=== PATIENT | female | born 1970 | race Caucasian/White ===

== ENCOUNTER 2019-09-10 20:10 | Emergency (ER) | payer OTHER, SELFPAY ==
[2019-09-10 20:33] VITALS: BP 163/119; PULSE 93; RESP 16; TEMP 37; O2SAT 99; BMI 29.0
--- NOTE | 2019-09-10 21:28 | ED_ITS ---
Entered by Anyi De Anda, acting as scribe for Jose J Lo MD Sep 10, 2019 20:10 HPI - Animal Bite General: Chief Complaint: Animal Bite Stated Complaint: animal bite, right elbow Time Seen by Provider: 09/10/19 21:28 Source: patient Mode of arrival: ambulatory History of Present Illness: HPI narrative: 49 y/o female presents to the ED with an animal bite ( around 1700). 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 She was bitten on the right arm/elbow. The family told her the dog was UTD on its vaccinations but she did not get any paperwork to prove it. She washed the site immediately and states she only has mild discomfort. She was advised to come here for medical clearance, by her boss. complaint: animal bite Onset (ago): hour(s) Animal: dog Description of animal: household pet Mechanism: bite Location - Extremities: Right: arm Context: unprovoked Associated symptoms: Deny chills, fever(s) or headache(s) Treatments prior to arrival: wound dressing(s) and irrigation Review of Systems Const: Denies: fever, chills, body aches or change in appetite Eyes: Denies: blurry vision or eye discomfort ENMT: Denies: throat pain or dental pain Card: Denies: chest pain Resp: Denies: shortness of breath GI: Denies: abdominal pain, nausea, vomiting or diarrhea : Denies: painful urination Musc: Denies: neck pain or back pain Skin/Breast: Reports: skin tenderness Neuro: Denies: headache Psych: Denies: depression Alden/Lymph: Denies: easy bruising All/Imm: Denies: hives PFS ED PFSH: Social History Smoking and tobacco status: never smoked Physical Exam Const: COMMON NORMALS: no apparent distress, oriented x3 and healthy appearing HENMT: COMMON NORMALS: normocephalic and head/scalp atraumatic HEAD & SCALP: normocephalic and atraumatic Eye: COMMON NORMALS: PERRL and EOMs intact bilaterally PUPIL: Yes PERRL Neck/C-Spine: COMMON NORMALS: full ROM and supple Chest: COMMONS NORMALS: inspection of chest normal and palpation of chest normal Resp: COMMON NORMALS: normal respiratory effort, no retractions, no use of accessory muscles and clear to auscultation bilaterally AUSCULTATION: clear to auscultation bilaterally Cardio: COMMON NORMALS: regular rate, regular rhythm and no murmurs RATE: regular rate RHYTHM: regular rhythm GI: COMMON NORMALS: normal to inspection, nondistended, normoactive bowel sounds, soft to palpation, non-tender and no masses PALPATION: Yes soft Extremity: COMMON NORMALS: normal to inspection and full ROM Neuro: COMMON NORMALS: oriented x3, moves all extremities and no focal motor deficits Psych: COMMON NORMALS: mental status grossly normal, thought process normal and cooperative THOUGHT PROCESS: normal thought process Skin: COMMON NORMALS: no wounds (bite to right arm) Course Vital Signs: Vital signs: Vital Signs Temperature 98.6 F 09/10/19 20:33 Pulse Rate 93 09/10/19 20:33 Respiratory Rate 16 09/10/19 20:33 Blood Pressure 163/119 09/10/19 20:33 Pulse Oximetry 99 09/10/19 20:33 MDM - Animal Bite MDM Narrative: Medical decision making narrative: Patient presents here with a dog bite. She has no puncture wounds but does have abrasions to her right elbow. She has no signs of major injuries. We will update her tetanus and place her on Keflex for prophylaxis. She is to contact animal control to have the dog evaluated for possible rabies. Patient states that the dog's bowl sander states that he is up-to-date on his vaccines. Discharge Plan Discharge Patient Disposition: Home, Self-Care Clinical Impression: Dog bite Qualifiers: Encounter type: initial encounter Qualified Code(s): W54.0XXA - Bitten by dog, initial encounter Condition: Stable Prescriptions: New Keflex 500 mg capsule 500 mg PO Q6H 7 Days Qty: 28 RF: 0 Discharge Orders: Discharge Order (Routine); Ordered 09/10/19 Ordered By: Jose J Lo Discharge Diet: Advance as tolerated Discharge Activity: Resume usual activity Patient Instructions: Animal Bite (ED) Coding Level of Care Code ED Forensic Science Examiner for Chg Fwd Exam Comprehensive The documentation recorded by the Adilson dietrich Ashley, accurately reflects the service I personally performed and the decisions made by Wally mae Korby, MD Sep 10, 2019 20:10
[2019-09-10] MEDS: tetanus-dipt-pertussis 0.5 mL SDV IM (22:01)
[2019-09-10 22:34] VITALS: BP 134/84; PULSE 70; RESP 16; TEMP 36.5; O2SAT 96
== END 2019-09-10 22:05 | disposition home or self-care (01) ==
PROVIDERS: Emergency Provider Emergency Medicine
DX: S50.311A Abrasion of right elbow, initial encounter (principal); W54.0XXA Bitten by dog, initial encounter
CPT/HCPCS: 12345; 90471; 90715; 99281; 99282

== ENCOUNTER → 2019-10-10 15:32 | Outpatient (BNVA) | payer OTHER, SELFPAY | PROVIDERS: Visit Provider Nurse Practitioner Family | DX: R05 Cough (principal); J01.40 Acute pansinusitis, unspecified; Z20.828 Contact with and (suspected) exposure to other viral communicable diseases | CPT/HCPCS: 87635 ==

== ENCOUNTER 2019-11-24 08:13 | Outpatient (CLI) | payer OTHER, SELFPAY ==
--- NOTE | 2019-11-24 08:22 | XR_ITS ---
WS: [id number] CHEST 2 VIEWS HISTORY: COUGHING COMPARISON: 04/01/2006 Lungs: Clear with no abnormality. No pleural effusion or pneumothorax. Cardiac size: Normal. Mediastinum/Aorta: Normal mediastinum. Bones: Normal. XR/XR chest 2V* [id number] IMPRESSION: Normal chest.
== END 2019-11-24 08:14 | disposition home or self-care (01) ==
LOC: RAD 08:17
PROVIDERS: PCP Family Medicine; Visit Provider Specialist
DX: R05 Cough (principal)
CPT/HCPCS: 71046

== ENCOUNTER 2020-06-23 03:59 | Emergency (ER) | payer OTHER, SELFPAY ==
[2020-06-23 04:02] VITALS: BP 218/128; PULSE 120; RESP 18; TEMP 36.8; O2SAT 96; BMI 30.2
--- NOTE | 2020-06-23 04:06 | ECG_ITS ---
[facility] Test Date: 2020-06-23 Pat Name: Veronica Kim Department: Room: Gender: Female Customer Resolution Specialist: : 1970 Requested By: Jose J Lo Order Number: [id number] Aubrie MD: Juan Huertas M.D. Measurements Intervals [place] Rate: 110 P: 40 [place]: 197 QRS: -11 QRSD: 89 T: 23 QT: 317 QTc: 430 Interpretive Statements SINUS TACHYCARDIA No previous ECG available for comparison Electronically Signed On 06-24-2020 18:00:09 VENEER REPAIRER MACHINE by Juan Huertas M.D. [id number] f
--- NOTE | 2020-06-23 04:07 | W.ED.EPISTAX ---
HPI - Epistaxis General: Chief complaint: General Medical Stated complaint: high blood pressure, nose bleed Time Seen by Provider: 06/23/20 04:02 Source: patient Mode of arrival: ambulatory Limitations: no limitations History of Present Illness: HPI Narrative: 50-year-old female states she woke up this morning 1130 and had a nosebleed. States she is able to get it stopped but does start again at 3:00. Patient states she placed a tampon in her nose which I removed and the bleeding is stopped again. She states she has a history of high blood pressure but has not been taking her blood pressure medicine for the last week. She checks her blood pressure at home and it was elevated and is elevated. 218/128. She denies any pain anywhere. She states she does feel anxious about this. She denies any worsening or improving factors. Associated symptoms: Deny fever(s), headache(s) or vomiting Review of Systems Const: Denies: fever(s), chills, body aches or change in appetite Eyes: Denies: blurry vision or eye discomfort ENMT: Reports: epistaxis Card: Denies: chest pain Resp: Denies: dyspnea GI: Denies: abdominal pain, nausea, vomiting or diarrhea : Denies: dysuria Musc: Denies: neck pain or back pain Skin/Breast: Denies: rash Neuro: Denies: headache(s) Psych: Denies: depression Alden/Lymph: Denies: easy bruising All/Imm: Denies: urticaria PFSH ED PFSH: Social History Smoking and tobacco status: never smoked Physical Exam Const: COMMON NORMALS: no acute distress, patient oriented x3 and healthy appearing HENMT: COMMON NORMALS: normocephalic and atraumatic HEAD & SCALP: normocephalic and atraumatic OTHER: dried blood to right nare Eye: COMMON NORMALS: Equal, round and reactive pupils present and EOMs intact bilaterally PUPIL: Yes Equal, round and reactive pupils present Neck/C-Spine: COMMON NORMALS: full ROM and supple Chest: COMMONS NORMALS: normal inspection of the chest and normal palpation of entire chest wall Resp: COMMON NORMALS: normal respiratory effort, No retractions, No use of accessory muscles and clear to auscultation bilaterally AUSCULTATION: clear to auscultation bilaterally Cardio: COMMON NORMALS: regular rhythm and No murmurs present (Cardio) RATE: tachycardic RHYTHM: regular rhythm GI: COMMON NORMALS: Normal to inspection, nondistended, normoactive bowel sounds present, Soft to palpation, non-tender and no masses PALPATION: Yes Soft to palpation Extremity: COMMON NORMALS: normal to inspection and full ROM Neuro: COMMON NORMALS: patient oriented x3, moves all extremities and no focal motor deficits Psych: COMMON NORMALS: mental status grossly normal, Normal thought process present and cooperative THOUGHT PROCESS: Normal thought process present Skin: COMMON NORMALS: no rashes or lesions noted and no wounds GENERAL SKIN EXAM: no rashes or lesions noted Course Vital Signs: Vital signs: Vital Signs Temperature 98.2 F 06/23/20 04:02 Pulse Rate 120 H 06/23/20 04:02 Respiratory Rate 18 06/23/20 04:02 Blood Pressure 218/128 06/23/20 04:02 Pulse Oximetry 96 06/23/20 04:02 MDM - Epistaxis MDM Narrative: Medical decision making narrative: Patient presents here with a nosebleed likely from her hypertension. Hypertension is likely due to not taking her meds over the last few days. Her blood pressure is much improved here and she had no longer had nosebleed. She is take her medicine daily. EKG is normal. She is stable for discharge and is to follow-up with her PCP in 3 to 5 days and return if worsening. She understands and agrees to plan. EKG Data^: EKG 1: Attestation: I personally reviewed and interpreted this EKG as follows: EKG interpretation date: 06/23/20 EKG interpretation time: 04:11 Interpretation: sinus tach hr 110 qrs 89 qtc 382 Discharge Plan Discharge Patient Disposition: Home Clinical Impression: Epistaxis, Hypertension Condition: Stable Prescriptions: No Action Trulicity 1.5 mg/0.5 mL pen injector SUBCUT .weekly RF: 0 montelukast [Singulair] 10 mg tablet 10 mg PO DAILY RF: 0 rosuvastatin [Crestor] 20 mg tablet 20 mg PO DAILY RF: 0 fexofenadine [Queta Allergy] 180 mg tablet 180 mg PO DAILY RF: 0 ipratropium-albuterol 0.5 mg-3 mg(2.5 mg base)/3 mL solution for nebulization 3 ml INHALATION QID PRNRF: 0 Discharge Orders: Discharge ED (Routine); Ordered 06/23/20 Ordered By: Jose J Lo Referrals: Izzy Nam DO [Primary Care Provider] - 1-3 days Discharge Diet: Advance as tolerated Discharge Activity: Resume usual activity Patient Instructions: Epistaxis (ED) Coding Level of Care Code ED Interactive Media Marketing Director for Chg Fwd Exam Comprehensive
[2020-06-23 04:10] VITALS: BP 214/108
[2020-06-23] MEDS: labetalol 5 mg/mL SDV 20mL 20 MG IVP (04:15)
[2020-06-23 04:40] VITALS: BP 199/102
[2020-06-23 04:50] VITALS: BP 119/94; PULSE 96; RESP 15; O2SAT 97
[2020-06-23] MEDS: oxymetazoline 0.05% Nasal Spray 15 mL 2 SPRAY NOSTRIL-R (05:28)
[2020-06-23 05:37] VITALS: BP 111/82; PULSE 72; RESP 18; O2SAT 95
--- NOTE | 2020-06-23 05:40 | PC.NURSE ---
after dc, while pt was using the restroom, pt begn to bleed out of R nare. Pt returned to ED rm 7. After re-evaluation from , new orders obtained
[2020-06-23 06:09] VITALS: BP 149/98; PULSE 86; RESP 20; O2SAT 92
--- NOTE | 2020-06-23 06:11 | PC.NURSE ---
i agree with the assessment
== END 2020-06-23 06:11 | disposition home or self-care (01) ==
PROVIDERS: Emergency Provider Emergency Medicine; PCP Family Medicine
DX: R04.0 Epistaxis (principal); I10 Essential (primary) hypertension
CPT/HCPCS: 12345; 30905; 36415; 62270; 93005; 96374; 99282; 99283; J3490

== ENCOUNTER 2020-06-23 16:17 | Emergency (ER) | payer OTHER, SELFPAY ==
[2020-06-23 16:21] VITALS: BP 146/105; PULSE 114; RESP 18; TEMP 36.7; O2SAT 97; BMI 30.2
[2020-06-23 16:25] VITALS: BP 145/90; PULSE 115; RESP 20; O2SAT 97
[2020-06-23 17:04] VITALS: BP 145/90; PULSE 116; RESP 20; O2SAT 97
--- NOTE | 2020-06-23 17:08 | W.ED.GENADLT ---
HPI - General Adult General: Chief complaint: General Medical Stated complaint: COMPLICATIONS WITH THE DRAIN IN NOSE Time Seen by Provider: 06/23/20 16:53 History of Present Illness: HPI narrative: The patient is a 50-year-old female with frequent nosebleeds who came to the ER at 4 AM this morning and had a Rhino Rocket inserted in her right nostril. She says she has seasonal allergies which are severe and she gets frequent nosebleeds related to that. Also she has a history of hypertension and takes her meds daily. Her systolic was over 200 whenever she arrived early this morning however now it is much lower at 146/105. She says the Rhino Rocket is too uncomfortable to keep in her nose and wants it out immediately. Discussed with her that it should be kept in for 2 days to stop the bleeding before being taken out however she would like it out now as she is having pressure in her sinuses and forehead relating to the Rhino Rocket. Associated symptoms: Deny chest pain, confusion, dyspnea, headache(s), rash or palpitations Review of Systems General: Reports: 10 or more systems reviewed and unremarkable except in HPI and below Const: Denies: fatigue Eyes: Denies: change in vision, blurry vision or eye redness ENMT: Reports: epistaxis; Denies: throat pain, swelling of lips/tongue, ear or mastoid pain or nasal congestion Card: Denies: chest pain, palpitations, irregular heart rhythm, edema, dyspnea on exertion or orthopnea Resp: Denies: dyspnea, productive cough or non-productive cough GI: Denies: abdominal pain, diarrhea or GI cramping : Denies: flank pain, difficulty voiding, urinary frequency or urinary urgency Musc: Denies: neck pain, back pain, extremity pain, joint pain, joint redness, limited range of motion or muscle weakness Skin/Breast: Denies: rash, pruritus, erythema, skin pain or skin tenderness Neuro: Denies: headache(s), numbness in extremities, weakness in extremities, sensory changes, difficulty walking, dizziness, confusion or Slurred speech present Psych: Denies: anxiety or depression Endo: Denies: polyuria All/Imm: Denies: urticaria, throat swelling or tongue swelling PFSH ED PFSH: Social History Smoking and tobacco status: never smoked Physical Exam Const: COMMON NORMALS: no acute distress, average body habitus, patient oriented x3, no limitations, healthy appearing, alert and well nourished GENERAL APPEARANCE: cooperative, comfortable, well kempt and well developed ORIENTATION/CONSCIOUSNESS: Yes awake, Yes oriented to person, Yes oriented to place and Yes oriented to time HENMT: COMMON NORMALS: normocephalic and external ears normal HEAD & SCALP: normal to inspection and normocephalic EXTERNAL EAR: Yes external ears normal OTHER: There is some bloody ooze coming out around the Rhino Rocket. It was removed with some blood soaked in the cloth. Her symptoms of pressure have been resolved Eye: COMMON NORMALS: Equal, round and reactive pupils present and EOMs intact bilaterally GENERAL EYE: appearance normal, both eyes and all related structures PUPIL: Yes Equal, round and reactive pupils present Neck/C-Spine: COMMON NORMALS: full ROM, no lymphadenopathy, no meningeal signs and no JVD GENERAL: Yes normal visual inspection Lymph: LYMPHATIC: no lymphadenopathy noted Chest: COMMONS NORMALS: normal inspection of the chest and normal palpation of entire chest wall Resp: COMMON NORMALS: normal respiratory effort, No retractions, No use of accessory muscles, clear to auscultation bilaterally and percussion normal EFFORT & INSPECTION: Yes able to speak in complete sentences AUSCULTATION: clear to auscultation bilaterally PERCUSSION: percussion normal Cardio: COMMON NORMALS: no JVD, regular rate, regular rhythm, S1 normal heart sound present, S2 normal heart sound present and Peripheral pulses 2+ throughout RATE: regular rate RHYTHM: regular rhythm HEART SOUNDS: S1 normal heart sound present and S2 normal heart sound present PERIPHERAL PULSES: Peripheral pulses 2+ throughout GI: COMMON NORMALS: Normal to inspection, nondistended, normoactive bowel sounds present, Soft to palpation, non-tender and no masses INSPECTION: Yes normal to inspection PALPATION: Yes Soft to palpation : COMMON NORMALS: Yes no CVA tenderness BLADDER/KIDNEY EXAM: Yes no CVA tenderness Back/Pelvis: COMMON NORMALS: no CVA tenderness, thoracic and lumbar spine normal to inspection, no thoracic nor lumbar tenderness and thoraco-lumbar ROM normal Extremity: COMMON NORMALS: normal to inspection, full ROM, capillary refill normal, no joint enlargement and no pedal edema GENERAL: Yes normal exam except as noted Neuro: COMMON NORMALS: patient oriented x3, CN's II-XII intact bilaterally, moves all extremities, no focal motor deficits, no sensory deficits noted and gait normal SENSORIUM/ORIENTATION: Yes alert, Yes oriented to person, Yes oriented to place and Yes oriented to time MENINGEAL SIGNS: Yes no meningeal signs Psych: COMMON NORMALS: mental status grossly normal, Normal thought process present, cooperative, normal affect and speech normal APPEARANCE: Yes well kempt ATTITUDE: Yes calm SPEECH: Yes normal speech THOUGHT PROCESS: Normal thought process present Skin: COMMON NORMALS: no rashes or lesions noted GENERAL SKIN EXAM: no rashes or lesions noted Course Vital Signs: Vital signs: Vital Signs Temperature 98.0 F 06/23/20 16:21 Pulse Rate 125 H 06/23/20 18:09 Respiratory Rate 24 H 06/23/20 18:09 Blood Pressure 128/90 06/23/20 18:09 Pulse Oximetry 97 06/23/20 18:09 MDM - General Adult MDM Narrative: Medical decision making narrative: After removing the Rhino Rocket at her request nasal clamp did not stop the bleeding in her nose. A smaller Rhino Rocket was placed in her nose and she was taught how to care for it at home. Remove in 2 days. Return to the ER with worsening symptoms follow-up with ear nose throat doctor to have the nasal arteries cauterized Discharge Plan Discharge Patient Disposition: Home Clinical Impression: Epistaxis Condition: Stable Prescriptions: New azithromycin 250 mg tablet 250 mg PO DAILY 5 Days RF: 0 Zofran 4 mg tablet 4 mg PO TID PRN (Reason: Nausea And Vomiting) 5 Days Qty: 10 RF: 0 Discontinued cephalexin [Keflex] 500 mg capsule 500 mg PO TID Qty: 9 RF: 0 No Action Trulicity 1.5 mg/0.5 mL pen injector SUBCUT .weekly RF: 0 montelukast [Singulair] 10 mg tablet 10 mg PO DAILY RF: 0 rosuvastatin [Crestor] 20 mg tablet 20 mg PO DAILY RF: 0 fexofenadine [Queta Allergy] 180 mg tablet 180 mg PO DAILY RF: 0 ipratropium-albuterol 0.5 mg-3 mg(2.5 mg base)/3 mL solution for nebulization 3 ml INHALATION QID PRNRF: 0 Discharge Orders: Discharge ED (Routine); Ordered 06/23/20 Ordered By: Azam Leon Referrals: Izzy Nam DO [Primary Care Provider] - Discharge Diet: Usual diet Discharge Activity: Resume usual activity Patient Instructions: Epistaxis (ED) Activity Restrictions/Additional Instructions: Please keep the Rhino Rocket in for 2 days and remove. Return to the ER with worsening symptoms otherwise follow-up with ENT to cauterize the arteries that continued to bleed in your nose. I have placed a referral with case management who should be able to help you address this tomorrow getting an appointment with them. Return to the ER with worsening symptoms thank you. Coding Level of Care Code ED Interactive Media Project Manager for Eleazar Fwd Exam Comprehensive
[2020-06-23 18:09] VITALS: BP 128/90; PULSE 125; RESP 24; O2SAT 97
--- NOTE | 2020-06-23 18:34 | PC.NURSE ---
Does not have pain. Pressure from sinuses and from nasal pressure to stop nose bleed. When pressure is released nose will bleed. States she has a high heart rate.
[2020-06-23] MEDS: azithromycin 250 mg Tablet 500 MG PO (19:12)
[2020-06-23] MEDS: ondansetron 4 MG Tablet PO (19:13)
[2020-06-23 19:17] VITALS: BP 128/90; PULSE 114; O2SAT 98
--- NOTE | 2020-06-27 09:45 | DCPLANNER ---
corporate human resources manager had message to schedule a follow up appointment for patient with ENT. corporate human resources manager emailed both Shantelle, and Jamilah with general surgery, patients information. Patients information will be printed and reviewed. Clinic will contact patient with appointment information.
--- NOTE | 2020-07-01 10:46 | DCPLANNER ---
Patient had a follow up appointment scheduled for 06.27.[address] Valentin - patient did attend appointment.
== END 2020-06-23 19:18 | disposition home or self-care (01) ==
PROVIDERS: Emergency Provider Family Medicine; PCP Family Medicine
DX: R04.0 Epistaxis (principal)
CPT/HCPCS: 12345; 99281; 99283; Q0144; Q0162

== ENCOUNTER 2020-06-25 21:06 | Emergency (ER) | payer OTHER, SELFPAY ==
[2020-06-25 21:13] VITALS: BP 118/84; PULSE 108; RESP 18; TEMP 36.7; O2SAT 98; BMI 30.2
--- NOTE | 2020-06-25 21:26 | PC.NURSE ---
Marquis Casas in the triage area removed packing and no bleeding noted at this time.
--- NOTE | 2020-06-26 02:18 | ED_ITS ---
HPI - Epistaxis General: Chief complaint: Epistaxis Stated complaint: NEEDS DRAIN IN NOSE REMOVED Time Seen by Provider: 06/25/20 21:29 History of Present Illness: HPI Narrative: Patient presents to have her Rhino Rocket taken of her nose. complaint: epistaxis Review of Systems Narrative: Patient is Rhino Rocket present and there has been no bleeding going on [facility] ED PFSH: Social History Smoking and tobacco status: never smoked Physical Exam Const: COMMON NORMALS: no acute distress OTHER: Rhino Rocket removed without any active bleeding patient observed waiting room for 45 minutes did fine Course Vital Signs: Vital signs: Vital Signs Temperature 98.0 F 06/25/20 21:13 Pulse Rate 108 H 06/25/20 21:13 Respiratory Rate 18 06/25/20 21:13 Blood Pressure 118/84 06/25/20 21:13 Pulse Oximetry 98 06/25/20 21:13 Discharge Plan Discharge Patient Disposition: Home Clinical Impression: Epistaxis Condition: Stable Prescriptions: No Action Trulicity 1.5 mg/0.5 mL pen injector SUBCUT .weekly RF: 0 montelukast [Singulair] 10 mg tablet 10 mg PO DAILY RF: 0 rosuvastatin [Crestor] 20 mg tablet 20 mg PO DAILY RF: 0 fexofenadine [Queta Allergy] 180 mg tablet 180 mg PO DAILY RF: 0 ipratropium-albuterol 0.5 mg-3 mg(2.5 mg base)/3 mL solution for nebulization 3 ml INHALATION QID PRNRF: 0 azithromycin 250 mg tablet 250 mg PO DAILY 5 Days RF: 0 Zofran 4 mg tablet 4 mg PO TID PRN (Reason: Nausea And Vomiting) 5 Days Qty: 10 RF: 0 Discharge Orders: Discharge ED (Routine); Ordered 06/25/20 Ordered By: Marquis Casas Referrals: Izzy Nam DO [Primary Care Provider] - Discharge Diet: Usual diet Discharge Activity: Increase activity as tolerated Patient Instructions: Epistaxis (ED) Activity Restrictions/Additional Instructions: Use Afrin nose spray. Follow-up with your family medical provider. Can use Vaseline or petroleum jelly inside the nares to keep nose moist. Coding Level of Care Code ED Physiotherapy Practice Manager for Chg Fwd Exam Problem Focused
== END 2020-06-25 22:11 | disposition home or self-care (01) ==
PROVIDERS: Emergency Provider Nurse Practitioner Family; PCP Family Medicine
DX: R04.0 Epistaxis (principal)
CPT/HCPCS: 12345; 99281

== ENCOUNTER 2021-06-20 15:58 | Emergency (ER) | payer BC, SELFPAY ==
[2021-06-20 17:41] VITALS: BP 152/102; PULSE 112; RESP 16; TEMP 36.5; O2SAT 98; BMI 29.7
[2021-06-20 17:57] LABS: Basophils # 0.1 10^3/uL (0.0-0.1); Basophils % 0.5 %; Eosinophils # 0.3 10^3/uL (0.0-0.8); Eosinophils % 2.8 %; Hematocrit 45.8 % (37.0-47.0); Hemoglobin 15.7 g/dL (11.5-15.3); Lymphocytes # 2.1 10^3/uL (0.8-4.8); Lymphocytes % 21.3 %; Mean Corpuscular HGB Conc 34.3 g/dL (30.0-36.0); Mean Corpuscular Hemoglobin 30.2 pg (28.0-34.0); Mean Corpuscular Volume 88.1 fl (81-99); Mean Platelet Volume 11.5 fL (7.4-10.4); Monocytes # 0.5 10^3/uL (0.2-0.9); Neutrophils # 6.89 10^3/uL (1.8-7.7); Nucleated Red Blood Cells % 0 %; Platelet Count 244 10^3/cmm (130-400); Red Cell Distribution Width 12.6 % (12.1-15.1); White Blood Count 9.9 10^3/uL (4.0-10.0)
--- NOTE | 2021-06-20 17:58 | ECG_ITS ---
[facility] Test Date: 2021-06-20 Pat Name: Veronica Kim Department: Room: Gender: Female Steel Fixer: : 1970 Requested By: Saad Kline Order Number: [id number] Alfred MD: Carrie Burgess M.D. Measurements Intervals [place] Rate: 112 P: 41 [place]: 200 QRS: -26 QRSD: 86 T: 30 QT: 369 QTc: 504 Interpretive Statements SINUS TACHYCARDIA BORDERLINE LEFT AXIS DEVIATION [QRS AXIS < -20] LOW QRS VOLTAGE IN PRECORDIAL LEADS [QRS DEFLECTION < 1.0 mV IN CHEST LEADS] NONSPECIFIC T-WAVE ABNORMALITY Compared to ECG 06/23/2020 04:11:05 Low QRS voltage now present T-wave abnormality now present Electronically Signed On 06-20-2021 22:01:12 MEDICAL CODING INSTRUCTOR by Carrie Burgess M.D. [id number]
--- NOTE | 2021-06-20 17:58 | XRR_ITS ---
PROCEDURE INFORMATION: Exam: XR Chest Exam date and time: 06/20/2021 5:58 PM Age: 51 years old Clinical indication: Other: Epigastric pain TECHNIQUE: Imaging protocol: XR of the chest. Views: 1 view. COMPARISON: CR XR chest 2V* [id number] 11/24/2019 8:29 AM FINDINGS: Lungs: Unremarkable. No consolidation. Pleural spaces: Unremarkable. No pleural effusion. No pneumothorax. Heart/Mediastinum: Unremarkable. No cardiomegaly. Bones/joints: Unremarkable. XR/XR chest 1V portable [id number] IMPRESSION: No acute findings.
--- NOTE | 2021-06-20 17:59 | W.ED.ABDPA2 ---
Documented by User: SAÚL Kimball 06/20/21 19:46 HPI - Abdominal Pain General: Chief Complaint: Abdominal Pain Stated Complaint: burning in throat, possible assid reflex Time Seen by Provider: 06/20/21 19:19 History of Present Illness: HPI narrative: Patient is a 51-year-old female comes to the ED with epigastric pain. Patient says around 3 AM this morning she woke up with a burning pain in the epigastric region and in her chest as well. She states last night she did eat 2 slices of pizza. She does have a history of acid reflux and takes Protonix. 2 weeks ago she did have a similar instance and was seen at [facility] and diagnosed with gastroenteritis. Today she called her PCP and told her about her symptoms and they told her to come here to the ED to be evaluated. Epigastric and chest pain is burning sensation and she says it goes all the way up into her throat. Its been constant all day. Associated Symptoms: Denies chills, constipation, diarrhea, dysuria, fever(s), hematochezia, hematuria, nausea and vomiting Review of Systems Const: Denies: fever(s), chills or fatigue Eyes: Denies: change in vision or eye discomfort ENMT: Denies: throat pain, odynophagia, nasal discharge or nasal congestion Card: Reports: chest pain (burning pain in chest); Denies: palpitations, edema, swelling of feet/ankles, dyspnea on exertion or orthopnea Resp: Denies: dyspnea, productive cough or non-productive cough GI: Reports: abdominal pain (burning pain in epigastric region); Denies: nausea, vomiting, diarrhea, constipation or hematochezia : Denies: flank pain, dysuria or hematuria Musc: Denies: neck pain, back pain or extremity swelling Skin/Breast: Denies: rash or new lesions Neuro: Denies: headache(s), numbness in extremities or weakness in extremities PFSH ED PFSH: Medical History History of seasonal allergies Family History Mother Hypertension Diabetes Father Hypertension Cancer prostate, lung Social History Smoking and tobacco status: never smoked Second hand smoke exposure: Yes Alcohol intake: never Adopted: No Caregiver/support person: Yes Lives independently: Yes Household members: spouse Housing: House Marital status: Number of children: 2 Number of grandchildren: 2 Highest education level completed: Associate Degree: Occupational, Technical, Vocational Program Education level details: [facility] service: No Current occupational status: employed Current occupation: home health Pets and animals: Yes Pets & animals: cat(s), dog(s) and bird(s) History of recent travel: No Current gender identity: Female Special mook needs: No Physical Exam Const: COMMON NORMALS: no acute distress, patient oriented x3, healthy appearing and alert GENERAL APPEARANCE: cooperative and comfortable HENMT: COMMON NORMALS: normocephalic HEAD & SCALP: normocephalic MOUTH: Normal oral and palatal mucosa present THROAT: posterior oropharynx normal and uvula midline Neck/C-Spine: COMMON NORMALS: supple GENERAL: Yes normal visual inspection Resp: COMMON NORMALS: normal respiratory effort, No retractions, No use of accessory muscles and clear to auscultation bilaterally AUSCULTATION: clear to auscultation bilaterally Cardio: COMMON NORMALS: regular rate, regular rhythm, S1 normal heart sound present, S2 normal heart sound present, No gallops present (Cardio), No clicks present (Cardio), No murmurs present (Cardio) and Peripheral pulses 2+ throughout RATE: regular rate RHYTHM: regular rhythm HEART SOUNDS: S1 normal heart sound present and S2 normal heart sound present PERIPHERAL PULSES: Peripheral pulses 2+ throughout GI: COMMON NORMALS: Normal to inspection, nondistended, normoactive bowel sounds present, Soft to palpation, non-tender and no masses PALPATION: Yes Soft to palpation : COMMON NORMALS: Yes no CVA tenderness BLADDER/KIDNEY EXAM: Yes no CVA tenderness Back/Pelvis: COMMON NORMALS: no CVA tenderness Extremity: COMMON NORMALS: normal to inspection Neuro: COMMON NORMALS: patient oriented x3 SENSORIUM/ORIENTATION: Yes alert GAIT: Yes Normal gait present Skin: GENERAL SKIN EXAM: dry skin Course ED course: I saw patient in triage and did the initial history physical exam and started imaging and lab work-up. She appears stable and in no acute distress. She is likely having some epigastric pain likely acid reflux but will rule out any cardiac cause. Vital Signs: Vital signs: Vital Signs Temperature 97.7 F 06/20/21 17:41 Pulse Rate 112 H 06/20/21 17:41 Respiratory Rate 16 06/20/21 17:41 Blood Pressure 152/102 06/20/21 17:41 Pulse Oximetry 98 06/20/21 17:41 MDM - Abdominal Pain Lab Data: Labs: Lab Results 06/20/21 06/20/21 06/20/21 17:51 17:51 17:51 WBC 9.9 10^3/uL 10^3/ uL (4.0-10.0) RBC 5.20 10^6/uL 10^6 /uL (4.1-5.3) Hgb 15.7 g/dL H g/dL (11.5-15.3) Hct 45.8 % % (37.0-47.0) MCV 88.1 fl fl (81-99) MCH 30.2 pg pg (28.0-34.0) MCHC 34.3 g/dL g/dL (30.0-36.0) RDW 12.6 % % (12.1-15.1) Plt Count 244 10^3/cmm 10^3 /cmm (130-400) MPV 11.5 fL H fL (7.4-10.4) Neut % (Auto) 70.0 % % Lymph % (Auto) 21.3 % % [place] % (Auto) 5.0 % % Eos % (Auto) 2.8 % % Baso % (Auto) 0.5 % % Neut # (Auto) 6.89 10^3/uL 10^3 /uL (1.8-7.7) Lymph # (Auto) 2.1 10^3/uL 10^3/ uL (0.8-4.8) [place] # (Auto) 0.5 10^3/uL 10^3/ uL (0.2-0.9) Eos # (Auto) 0.3 10^3/uL 10^3/ uL (0.0-0.8) Baso # (Auto) 0.1 10^3/uL 10^3/ uL (0.0-0.1) Nucleated RBC % (a uto) 0 % % Nucleated RBCs # 0.0 /100WBC /100W BC Sodium 138 mmol/L mmol/L (136-145) Potassium 4.6 mmol/L mmol/L (3.5-5.1) Chloride 99 mmol/L mmol/L (98-107) Carbon Dioxide 23 mmol/L mmol/L (22-29) Anion Gap 20.6 H (5-19) BUN 11 mg/dL mg/dL (6-20) Creatinine 0.8 mg/dL mg/dL (0.5-0.9) GFR Calculation 76.2 mL/min L mL/ min (90-130) Glucose 198 mg/dL H mg/dL (65-115) Calculated Osmolal ity 291 mOsm/kg mOsm/ kg (285-295) Calcium 10.0 mg/dL mg/dL (8.5-10.5) Total Bilirubin 0.5 mg/dL mg/dL (0.15-1.2) AST 53 U/L H U/L (0-32) ALT 72 U/L H U/L (0-33) Alkaline Phosphata se 101 IU/L IU/L (35-105) Troponin T Baselin e 6 ng/L ng/L (0-10) Troponin T 120 Min [place] Troponin T Total Protein 7.4 g/dL g/dL (6.6-8.7) Albumin 4.9 g/dL g/dL (3.5-5.2) Globulin 2.5 g/dL g/dL (1.3-4.6) Lipase 44 U/L U/L (13-60) 06/20/21 20:08 WBC RBC Hgb Hct MCV MCH MCHC RDW Plt Count MPV Neut % (Auto) Lymph % (Auto) [place] % (Auto) Eos % (Auto) Baso % (Auto) Neut # (Auto) Lymph # (Auto) [place] # (Auto) Eos # (Auto) Baso # (Auto) Nucleated RBC % (a uto) Nucleated RBCs # Sodium Potassium Chloride Carbon Dioxide Anion Gap BUN Creatinine GFR Calculation Glucose Calculated Osmolal ity Calcium Total Bilirubin AST ALT Alkaline Phosphata se Troponin T Baselin e Troponin T 120 Min [place] 6.00 ng/L ng/L (0-10) Delta Troponin T 0 ABS# ABS# (0-10) Total Protein Albumin Globulin Lipase Discharge Plan Discharge Patient Disposition: Home Clinical Impression: Abdominal pain Qualifiers: Abdominal location: epigastric Qualified Code(s): R10.13 - Epigastric pain Condition: Stable Prescriptions: New sucralfate 1 gram tablet 1 g PO BID 28 Days Qty: 56 RF: 0 No Action lisinopril 2.5 mg tablet 2.5 mg PO DAILY RF: 0 levocetirizine 5 mg tablet 5 mg PO BID RF: 0 Trulicity 1.5 mg/0.5 mL pen injector SUBCUT .weekly RF: 0 montelukast [Singulair] 10 mg tablet 10 mg PO DAILY RF: 0 rosuvastatin [Crestor] 20 mg tablet 20 mg PO DAILY RF: 0 ipratropium-albuterol 0.5 mg-3 mg(2.5 mg base)/3 mL solution for nebulization 3 ml INHALATION QID PRNRF: 0 Discharge Orders: Discharge ED (Routine); Ordered 06/20/21 Ordered By: Jose J Lo Referrals: Diego Stringer MD [Physician] - 1-3 days Izzy Nam DO [Primary Care Provider] - 1-3 days Discharge Diet: Advance as tolerated Discharge Activity: Resume usual activity Patient Instructions: Abdominal Pain (ED) Coding Level of Care Code ED Box Closing Machine Operator for Chg Fwd Exam Comprehensive Documented by User: Jose J Lo MD 06/20/21 20:41 HPI - Abdominal Pain General: Chief Complaint: Abdominal Pain Stated Complaint: burning in throat, possible assid reflex Time Seen by Provider: 06/20/21 19:19 PFSH ED PFSH: Medical History History of seasonal allergies Family History Mother Hypertension Diabetes Father Hypertension Cancer prostate, lung Social History Smoking and tobacco status: never smoked Second hand smoke exposure: Yes Alcohol intake: never Adopted: No Caregiver/support person: Yes Lives independently: Yes Household members: spouse Housing: House Marital status: Number of children: 2 Number of grandchildren: 2 Highest education level completed: Associate Degree: Occupational, Technical, Vocational Program Education level details: [employer] service: No Current occupational status: employed Current occupation: home health Pets and animals: Yes Pets & animals: cat(s), dog(s) and bird(s) History of recent travel: No Current gender identity: Female Special mook needs: No Course Vital Signs: Vital signs: Vital Signs Temperature 97.7 F 06/20/21 17:41 Pulse Rate 112 H 06/20/21 17:41 Respiratory Rate 16 06/20/21 17:41 Blood Pressure 152/102 06/20/21 17:41 Pulse Oximetry 98 06/20/21 17:41 MDM - Abdominal Pain MDM Narrative: Medical decision making narrative: Patient presents here with epigastric nominal pain that is consistent with likely reflux we will start patient on sulcal fate and have her follow-up with surgery she likely needs a scope she is well-appearing here with no signs of cardiac cause for her pain abdominal exam at discharge benign. She is stable for discharge return if worsening. Lab Data: Labs: Lab Results 06/20/21 06/20/21 06/20/21 17:51 17:51 17:51 WBC 9.9 10^3/uL 10^3/ uL (4.0-10.0) RBC 5.20 10^6/uL 10^6 /uL (4.1-5.3) Hgb 15.7 g/dL H g/dL (11.5-15.3) Hct 45.8 % % (37.0-47.0) MCV 88.1 fl fl (81-99) MCH 30.2 pg pg (28.0-34.0) MCHC 34.3 g/dL g/dL (30.0-36.0) RDW 12.6 % % (12.1-15.1) Plt Count 244 10^3/cmm 10^3 /cmm (130-400) MPV 11.5 fL H fL (7.4-10.4) Neut % (Auto) 70.0 % % Lymph % (Auto) 21.3 % % [place] % (Auto) 5.0 % % Eos % (Auto) 2.8 % % Baso % (Auto) 0.5 % % Neut # (Auto) 6.89 10^3/uL 10^3 /uL (1.8-7.7) Lymph # (Auto) 2.1 10^3/uL 10^3/ uL (0.8-4.8) [place] # (Auto) 0.5 10^3/uL 10^3/ uL (0.2-0.9) Eos # (Auto) 0.3 10^3/uL 10^3/ uL (0.0-0.8) Baso # (Auto) 0.1 10^3/uL 10^3/ uL (0.0-0.1) Nucleated RBC % (a uto) 0 % % Nucleated RBCs # 0.0 /100WBC /100W BC Sodium 138 mmol/L mmol/L (136-145) Potassium 4.6 mmol/L mmol/L (3.5-5.1) Chloride 99 mmol/L mmol/L (98-107) Carbon Dioxide 23 mmol/L mmol/L (22-29) Anion Gap 20.6 H (5-19) BUN 11 mg/dL mg/dL (6-20) Creatinine 0.8 mg/dL mg/dL (0.5-0.9) GFR Calculation 76.2 mL/min L mL/ min (90-130) Glucose 198 mg/dL H mg/dL (65-115) Calculated Osmolal ity 291 mOsm/kg mOsm/ kg (285-295) Calcium 10.0 mg/dL mg/dL (8.5-10.5) Total Bilirubin 0.5 mg/dL mg/dL (0.15-1.2) AST 53 U/L H U/L (0-32) ALT 72 U/L H U/L (0-33) Alkaline Phosphata se 101 IU/L IU/L (35-105) Troponin T Baselin e 6 ng/L ng/L (0-10) Troponin T 120 Min [place] Delta Troponin T Total Protein 7.4 g/dL g/dL (6.6-8.7) Albumin 4.9 g/dL g/dL (3.5-5.2) Globulin 2.5 g/dL g/dL (1.3-4.6) Lipase 44 U/L U/L (13-60) 06/20/21 20:08 WBC RBC Hgb Hct MCV MCH MCHC RDW Plt Count MPV Neut % (Auto) Lymph % (Auto) [place] % (Auto) Eos % (Auto) Baso % (Auto) Neut # (Auto) Lymph # (Auto) [place] # (Auto) Eos # (Auto) Baso # (Auto) Nucleated RBC % (a uto) Nucleated RBCs # Sodium Potassium Chloride Carbon Dioxide Anion Gap BUN Creatinine GFR Calculation Glucose Calculated Osmolal ity Calcium Total Bilirubin AST ALT Alkaline Phosphata se Troponin T Baselin e Troponin T 120 Min [place] 6.00 ng/L ng/L (0-10) Delta Troponin T 0 ABS# ABS# (0-10) Total Protein Albumin Globulin Lipase EKG Data ^: EKG 2: Attestation: I personally reviewed and interpreted this EKG as follows: EKG interpretation date: 06/20/21 EKG interpretation time: 19:47 Interpretation: nsr hr [address] or t wave abnormalities qrs 94 qtc 381 Discharge Plan Discharge Patient Disposition: Home Clinical Impression: Abdominal pain Qualifiers: Abdominal location: epigastric Qualified Code(s): R10.13 - Epigastric pain Condition: Stable Prescriptions: New sucralfate 1 gram tablet 1 g PO BID 28 Days Qty: 56 RF: 0 No Action lisinopril 2.5 mg tablet 2.5 mg PO DAILY RF: 0 levocetirizine 5 mg tablet 5 mg PO BID RF: 0 Trulicity 1.5 mg/0.5 mL pen injector SUBCUT .weekly RF: 0 montelukast [Singulair] 10 mg tablet 10 mg PO DAILY RF: 0 rosuvastatin [Crestor] 20 mg tablet 20 mg PO DAILY RF: 0 ipratropium-albuterol 0.5 mg-3 mg(2.5 mg base)/3 mL solution for nebulization 3 ml INHALATION QID PRNRF: 0 Discharge Orders: Discharge ED (Routine); Ordered 06/20/21 Ordered By: Jose J Lo Referrals: Diego Stringer MD [Physician] - 1-3 days Izzy Nam DO [Primary Care Provider] - 1-3 days Discharge Diet: Advance as tolerated Discharge Activity: Resume usual activity Patient Instructions: Abdominal Pain (ED) Coding Level of Care Code ED Box Closing Machine Operator for Chg Fwd Exam Comprehensive
[2021-06-20 18:26] LABS: Troponin(5th) Baseline 6 ng/L (0-10)
[2021-06-20 18:27] LABS: Alanine Aminotransferase 72 U/L (0-33); Albumin Level 4.9 g/dL (3.5-5.2); Alkaline Phosphatase 101 IU/L (35-105); Anion Gap 20.6 (5-19); Aspartate Amino Transferase 53 U/L (0-32); Blood Urea Nitrogen 11 mg/dL (6-20); Carbon Dioxide 23 mmol/L (22-29); Chloride 99 mmol/L (98-107); Globulin 2.5 g/dL (1.3-4.6); Glomerular Filtration Rate 76.2 mL/min (90-130); Glucose 198 mg/dL (65-115); Lipase 44 U/L (13-60); Osmolality Calculated 291 mOsm/kg (285-295); Potassium 4.6 mmol/L (3.5-5.1); Sodium 138 mmol/L (136-145); Total Bilirubin 0.5 mg/dL (0.15-1.2); Total Protein 7.4 g/dL (6.6-8.7)
--- NOTE | 2021-06-20 19:58 | ECG_ITS ---
[facility] Test Date: 2021-06-20 Pat Name: Veronica Kim Department: Room: Gender: Female Manager Track: : 1970 Requested By: Saad Kline Order Number: [id number] Aubrie MD: Carrie Burgess M.D. Measurements Intervals [place] Rate: 96 P: 15 NV: 192 QRS: -5 QRSD: 94 T: 30 QT: 327 QTc: 415 Interpretive Statements SINUS RHYTHM POSSIBLE LEFT ATRIAL ENLARGEMENT [-0.1mV P-WAVE IN V1/V2] Compared to ECG 06/20/2021 17:53:26 Sinus tachycardia no longer present T-wave abnormality no longer present Electronically Signed On 06-20-2021 22:13:10 SEASONAL WAREHOUSE ASSOCIATE by Carrie Burgess M.D. [email or web address]
[2021-06-20 20:33] LABS: Troponin 5 2HR Delta 0 ABS# (0-10)
[2021-06-20 21:00] VITALS: BP 115/98; PULSE 105; RESP 18; TEMP 36.7; O2SAT 97
--- NOTE | 2021-06-21 06:20 | PC.SOCIAL ---
ED referral received for gen surgery consult dr scott per Dr Lo. Emailed clinic to notify of referral and they will review and call patient with appt date and time.
--- NOTE | 2021-06-27 07:53 | DCPLANNER ---
milieu manager was notified that when clinic called patient to schedule a follow up appointment, that patient declined appointment at this time.
--- NOTE | 2021-06-27 14:15 | DCPLANNER ---
Addendum entered by Ledy Gutierrez 06/27/21 15:13: shoe caser called the office of Dr. Gregory to confirm that patients information was received. assistant credit manager was told that clinic did receive patients information. Original Note: Patient called shoe caser stating that she had been seen in the ER and that she was referred to Dr. Stringer. Patient stated that she would like the referral to be sent to Dr. Gregory. assistant credit manager faxed patients information to the office of Dr. Gregory.
--- NOTE | 2021-07-18 09:06 | DCPLANNER ---
assistant customer service manager called the office of Dr. Gregory to confirm that an appointment had been scheduled. assistant customer service manager spoke with Sara, was told that patient is to call clinic back to schedule an appointment.
== END 2021-06-20 21:03 | disposition home or self-care (01) ==
PROVIDERS: Physician Assistant; Emergency Provider Emergency Medicine; PCP Family Medicine
DX: R10.13 Epigastric pain (principal)
CPT/HCPCS: 36415; 71045; 80053; 83690; 84484; 85025; 93005; 99283